=== PATIENT | female | born 2000 | race Two or more races ===

== ENCOUNTER 2024-10-13 22:02 | Emergency (ER) | payer MEDICAID, OTHER ==
[~2024-10-13] VITALS: Ht 165.1 cm; Wt 68.1 kg
[2024-10-13 22:26] VITALS: BP 128/77; PULSE 104; RESP 22; O2SAT 97
--- NOTE | 2024-10-13 23:25 | ED.PDOC ---
SOB-HPI Chief Complaint: Cough Time Seen by MD: 22:17 Reviewed notes: Nurses Notes, Medications, Allergies Information Source: Patient Mode of Arrival: Ambulatory X-Ray, Labs, Meds, VS Vital Signs Date Time Temp Pulse Resp B/P (MAP) Pulse Ox O2 Delivery O2 Flow Rate FiO2 10/13/24 22:26 22 97 Room Air* 0 21 10/13/24 22:26 99.1 104 18 128/77 (94) 97 TONYA SERRA CLOTH PIECER Oct 13, 2024 23:25
== END 2024-10-14 00:10 | disposition left against medical advice (07) ==
LOC: ER 22:02
DX: R05.9 Cough, unspecified (principal); Z53.21 Procedure and treatment not carried out due to patient leaving prior to being seen by health care provider